=== PATIENT | male | born 1970 | race Caucasian/White ===

== ENCOUNTER 2017-01-13 14:09 | Emergency (ER) | payer BC ==
[2017-01-13 14:13] VITALS: BP 130/87; PULSE 62; RESP 14; TEMP 97.7; O2SAT 97
[2017-01-13] MEDS ORDERED: ACETAMINOPHEN 500 MG TAB PO ONE (14:53)
--- NOTE | 2017-01-13 15:02 | EDPHY ---
H & P Stated Complaint: hit head on shelf on Thursday- fatigue/culver's since Time Seen by Provider: 01/13/17 14:39 HPI/ROS: Chief complaint: Headache, fatigue HPI: 46-year-old male struck the left side of his head on a shelf while looking for the remote 2 days ago. He did not have a loss of consciousness. After the injury had a headache on the left side of about a 2 on a 10. Patient states that he has had a persistent mild headache at that same level since then. No nausea or vomiting. No vision changes. No neck pain. No numbness or tingling. Has had some mild fatigue. Is complaining of some mild tenderness on the left side of his episcopal. Pain is not been worsening. Symptoms not worsening but her just persisting. He is not taking any medications for this. ROS: 10 point Review of Systems is negative except as noted in the HPI. Past medical history: None Medications: None Allergies: None Physical exam: Gen: Awake, Alert, No Distress HEENT: Atraumatic, nontender, no deformity, no hematoma Nose: no rhinorrhea Eyes: PERRLA, EOMI Mouth: Moist mucosa Neck: Supple, no JVD Back: no CVA tenderness, no midline tenderness Ext: no edema, non-tender Skin: no rash Neuro: CN II-XII intact, Sensation grossly intact, Strength 5/5 in bilateral upper and lower extremities - Personal History Current Tetanus/Diphtheria Vaccine: Yes Current Tetanus Diphtheria and Acellular Pertussis (TDAP): Yes - Medical/Surgical History Hx Asthma: Yes Hx Chronic Respiratory Disease: No Hx Diabetes: No Hx Cardiac Disease: No Hx Renal Disease: No Hx Cirrhosis: No Hx Alcoholism: No Hx HIV/AIDS: No Hx Splenectomy or Spleen Trauma: No Other PMH: pmh- asthma, gerd - Social History Smoking Status: Never smoked Constitutional: Initial Vital Signs Temperature (C) 36.5 C 01/13/17 14:10 Heart Rate 62 01/13/17 14:10 Respiratory Rate 14 01/13/17 14:10 Blood Pressure 130/87 H 01/13/17 14:10 O2 Sat (%) 97 01/13/17 14:10 O2 Delivery Mode Room Air Allergies/Adverse Reactions: No Known Allergies Allergy (Unverified 04/07/16 16:39) Home Medications: Medication Instructions Recorded Albuterol [Proventil Inhaler HFA 1 - 2 puffs IH Q4H PRN 04/08/16 (*)] Herbals/Supplements -Info Only 1 ea PO DAILY 04/08/16 Ibuprofen [Motrin (*)] 400 mg PO DAILY PRN 04/08/16 Omeprazole 01/13/17 Medical Decision Making ED Course/Re-evaluation: 46-year-old male sustained a mild head injury to left side of his head 2 days ago. He has a 1 to 2/10 had headache which has persisted since that time. He has not have any worsening of symptoms. No nausea or vomiting. No vision or hearing changes. No others symptoms other than some mild fatigue. He had no loss of consciousness or other features which are concerning for the possibility of intracranial bleed. I have discussed at length with him the advantages and disadvantages at obtaining a CT scan at this time including the significant radiation dose. He agrees that given that symptoms are not consistent with significant head injury or bleed and he would prefer to hold off on CT scanning at this time. I have given him instructions to return to the emergency department immediately for worsening headache, nausea, vomiting, numbness, tingling, or any other concerns. He will otherwise follow up with his doctor, caught Dr. Brown in several days if symptoms are not improving. - Data Points Medications Given: Discontinued Medications Acetaminophen (Tylenol) 1,000 mg PO EDNOW ONE Stop: 01/13/17 14:54 Last Admin: 01/13/17 14:59 Dose: 1,000 mg Departure - Departure Disposition: Home, Routine, Self-Care Clinical Impression: Head injury Condition: Good Instructions: Head Injury (ED) Additional Instructions: You may take ibuprofen and acetaminophen as needed for pain. Follow up with her primary care doctor in 3-4 days if symptoms are not improving. Return immediately to the emergency depart for increasing pain, nausea, vomiting , confusion, numbness, tingling, or any other concerns. Referrals: Pura Brown MD [Primary Care Provider] - As per Instructions
== END 2017-01-13 15:11 | disposition home or self-care (01) ==
DX: S09.90XA Unspecified injury of head, initial encounter (principal); J45.909 Unspecified asthma, uncomplicated; W22.8XXA Striking against or struck by other objects, initial encounter

== ENCOUNTER 2018-07-29 03:33 | Emergency (ER) | payer BC ==
--- NOTE | 2018-07-29 04:00 | EDPHY ---
H & P Stated Complaint: Left calf pain, [place] in [place], increasing pain Time Seen by Provider: 07/29/18 03:47 HPI/ROS: HPI The patient presents with left calf pain which has been present for the last 2 days which started slowly and has gotten progressively worse. He describes it as a deep aching pain which awoke him from sleep at 2:00 a.m. This morning. Over the weekend about 3 days ago he had been walking and hiking in the mountains quite a bit. He did not injure himself in any way. He has pain that begins in his calf and radiates down his leg. REVIEW OF SYSTEMS Constitutional: No fever, no chills. Eyes: No discharge. ENT: No sore throat. Cardiovascular: No chest pain, no palpitations. Respiratory: No cough, no shortness of breath. Gastrointestinal: No abdominal pain, no vomiting. Genitourinary: No hematuria. Musculoskeletal: No back pain. Skin: No rashes. Neurological: No headache. PMHx: Asthma, GERD PHYSICAL General Appearance: Alert, no distress Eyes: Pupils equal and round no pallor or injection ENT, Mouth: Mucous membranes moist Respiratory: Breathing comfortably Neurological: A&O, sensation intact throughout left leg to light touch Skin: Warm and dry, no rashes Extremities: Tenderness on deep palpation to left mid calf, Achilles tendon is nontender and intact, symmetrical, full range of motion Psychiatric: Patient is oriented X 3, there is no agitation Source: Patient Exam Limitations: No limitations - Personal History Current Tetanus Diphtheria and Acellular Pertussis (TDAP): Yes - Medical/Surgical History Hx Asthma: Yes Hx Chronic Respiratory Disease: No Hx Diabetes: No Hx Cardiac Disease: No Hx Renal Disease: No Hx Cirrhosis: No Hx Alcoholism: No Hx HIV/AIDS: No Hx Splenectomy or Spleen Trauma: No Other PMH: pmh- asthma, gerd - Social History Smoking Status: Never smoked Constitutional: Initial Vital Signs Temperature (C) 36.7 C 07/29/18 03:36 Heart Rate 58 L 07/29/18 03:36 Respiratory Rate 18 07/29/18 03:36 Blood Pressure 141/84 H 07/29/18 03:36 O2 Sat (%) 97 07/29/18 03:36 O2 Delivery Mode Room Air Allergies/Adverse Reactions: No Known Allergies Allergy (Unverified 04/07/16 16:39) Home Medications: Medication Instructions Recorded Albuterol [Proventil Inhaler HFA 1 - 2 puffs IH Q4H PRN 04/08/16 (*)] Herbals/Supplements -Info Only 1 ea PO DAILY 04/08/16 Ibuprofen [Motrin (*)] 400 mg PO DAILY PRN 04/08/16 Omeprazole 01/13/17 Rivaroxaban [Xarelto 15mg (*)] 15 mg PO BID 21 Days tab 07/29/18 Medical Decision Making - Diagnostics Imaging Results: Ultrasound left leg to evaluate for DVT demonstrates clot within the posterior tibial vein, discussed with Dr. Diaz of Radiology Differential Diagnosis: 48-year-old male with atraumatic left calf pain. Differential diagnosis includes DVT, rhabdomyolysis, tendinitis. Ultrasound was performed and did demonstrate posterior tibial blood clot not involving the popliteal vein. I did check a D-dimer which was also elevated. I discussed risks and benefits of anticoagulation with the patient and he would like to proceed. I did explain that this is an area of some controversy within the literature. I will start him on rivaroxaban here and initiate the 21 day course with twice daily dosing. I have advised him that he should follow up with his primary care doctor within that time frame to continue longer course if necessary based on repeat ultrasound. I have also encouraged him to elevate his leg, avoid any long car trips or long airplane flights, use compression stockings as needed. - Data Points Laboratory Results: Laboratory Results 07/29/18 04:08 07/29/18 04:08 07/29/18 07/29/18 07/29/18 04:08 04:08 04:08 WBC 7.43 10^3/uL 10^3/uL (3.80-9.50) RBC 5.39 10^6/uL 10^6/uL (4.40-6.38) Hgb 17.1 g/dL g/dL (13.7-17.5) Hct 49.1 % % (40.0-51.0) MCV 91.1 fL fL (81.5-99.8) MCH 31.7 pg pg (27.9-34.1) MCHC 34.8 g/dL g/dL (32.4-36.7) RDW 12.1 % % (11.5-15.2) Plt Count 232 10^3/uL 10^3/uL (150-400) MPV 10.3 fL fL (8.7-11.7) Neut % (Auto) 54.6 % % (39.3-74.2) Lymph % (Auto) 35.0 % % (15.0-45.0) Jones % (Auto) 5.9 % % (4.5-13.0) Eos % (Auto) 3.2 % % (0.6-7.6) Baso % (Auto) 0.9 % % (0.3-1.7) Nucleat RBC Rel Count 0.0 % % (0.0-0.2) Absolute Neuts (auto) 4.05 10^3/uL 10^3/uL (1.70-6.50) Absolute Lymphs (auto) 2.60 10^3/uL 10^3/uL (1.00-3.00) Absolute Monos (auto) 0.44 10^3/uL 10^3/uL (0.30-0.80) Absolute Eos (auto) 0.24 10^3/uL 10^3/uL (0.03-0.40) Absolute Basos (auto) 0.07 10^3/uL 10^3/uL (0.02-0.10) Absolute Nucleated RBC 0.00 10^3/uL 10^3/uL (0-0.01) Immature Gran % 0.4 % % (0.0-1.1) Immature Gran # 0.03 10^3/uL 10^3/uL (0.00-0.10) D-Dimer 0.97 ug/mLFEU H ug/mLFEU (0.00-0.50) Sodium 140 mEq/L mEq/L (135-145) Potassium 4.3 mEq/L mEq/L (3.3-5.0) Chloride 104 mEq/L mEq/L (97-110) Carbon Dioxide 27 mEq/l mEq/l (22-31) Anion Gap 9 mEq/L mEq/L (8-16) BUN 19 mg/dL mg/dL (7-23) Creatinine 1.1 mg/dL mg/dL (0.7-1.3) Estimated GFR > 60 Glucose 120 mg/dL H mg/dL (70-100) Calcium 9.6 mg/dL mg/dL (8.5-10.4) Creatine Kinase 46 IU/L IU/L (0-224) Medications Given: Discontinued Medications Sodium Chloride (Ns) 1,000 mls @ 0 mls/hr IV ONCE ONE PRN Reason: Wide Open Stop: 07/29/18 04:07 Last Admin: 07/29/18 04:06 Dose: 1,000 mls Rivaroxaban (Xarelto) 15 mg PO EDNOW ONE Stop: 07/29/18 05:23 Last Admin: 07/29/18 05:39 Dose: 15 mg Departure - Departure Disposition: Home, Routine, Self-Care Clinical Impression: DVT of lower limb, acute Qualifiers: Affected thrombotic vein of extremity: unspecified lower extremity distal vein Laterality: left Qualified Code(s): I82.4Z2 - Acute embolism and thrombosis of unspecified deep veins of left distal lower extremity Condition: Good Instructions: Deep Vein Thrombosis (ED), Deep Vein Thrombosis Prevention (ED) Additional Instructions: Your ultrasound today shows that you have a small DVT in your calf veins. For this, we recommend treatment with the medication I am prescribing you, compression stockings, elevation, avoiding long car rides or airplane flights. I would like for you to follow up with your primary care doctor within 1 week for recheck. You will need to have another ultrasound to see how the clot is doing. You should return to the emergency department if your having any shortness of breath, chest pain, worsening leg pain or swelling. Referrals: Pura Brown MD [Primary Care Provider] - As per Instructions Prescriptions: Rivaroxaban [Xarelto 15mg (*)] 15 mg PO BID 21 Days tab
[2018-07-29] MEDS ORDERED: NS 1,000 ML IV ONE (04:06)
[2018-07-29 04:44] LABS: CREATINE KINASE 46 IU/L (0-224)
[2018-07-29 05:07] LABS: PLATELET COUNT 232 10^3/uL (150-400)
[2018-07-29] MEDS ORDERED: RIVAROXABAN 15 MG TAB PO ONE (05:22)
[2018-07-29 05:36] VITALS: BP 128/87
== END 2018-07-29 05:45 | disposition home or self-care (01) ==
DX: I82.442 Acute embolism and thrombosis of left tibial vein (principal)